=== PATIENT | female | born 1965 | race Native Hawaiian/Other Pacific Islander ===

== ENCOUNTER 2019-09-28 10:56 | Outpatient (CLI) | payer OTHER, BC | END 2019-09-28 19:02 | disposition home or self-care (01) | LOC: MRI 10:56 | DX: M54.12 Radiculopathy, cervical region (principal) ==

== ENCOUNTER 2021-01-20 08:23 | Outpatient (CLI) | payer OTHER, BC | END 2021-01-20 21:19 | disposition home or self-care (01) | LOC: US 08:23 | PROVIDERS: ATTEND Nurse Practitioner Family | DX: R74.01 Elevation of levels of liver transaminase levels (principal) ==